=== PATIENT | male | born 1955 | race African-American/Black ===

== ENCOUNTER 2017-02-04 14:24 | Inpatient (IN) | payer OTHER ==
[~2017-02-04] VITALS: Ht 188 cm; Wt 99.9 kg
[2017-02-04] VITALS (8 sets, daily range): BP systolic 116–147; BP diastolic 54–74; PULSE 76–88; RESP 13–20; O2SAT 100
[2017-02-04 15:37] LABS: BASOPHILS % (AUTO) 0 % (0-3); EOSINOPHILS % (AUTO) 2 % (0-5); MONOCYTES % (AUTO) 5 % (4-12); Mean Corpuscular Hemoglobin 18.8 pg (27.0-35.0); Mean Corpuscular Volume 64 fL (81-100); NEUTROPHILS % (AUTO) 61 % (40-74); Platelet Count 221 bil/L (150-400)
[2017-02-04 15:49] LABS: TROPONIN T < 0.010 ug/L (0.0-0.011)
[2017-02-04 15:57] LABS: Magnesium 2.1 mg/dL (1.6-2.6)
--- NOTE | 2017-02-04 16:42 | DRSVH ---
PROCEDURE: X-RAY CHEST ONE VIEW, PORTABLE ([id number]) INDICATIONS: ELEVATED HEART RATE TECHNIQUE: One view of the chest was acquired. COMPARISON: None. FINDINGS: Surgical changes and devices: None. Lungs and pleura: No pleural effusions or pneumothorax. Lungs are clear. Mediastinum: Mediastinal contours appear normal. Heart size is normal. Bones and chest wall: No suspicious bony lesions. Overlying soft tissues appear unremarkable. IMPRESSION: No acute pulmonary process. Dictated by: Meaghan Jones M.D. on 02/04/2017 at 16:40 Approved by: Meaghan Jones M.D. on 02/04/2017 at 16:40
--- NOTE | 2017-02-04 17:07 | ED.REPORT ---
HPI-General Illness Date of Service Feb 04, 2017 ED Provider: Mirza Blue MD 61 y/o male with a hx of asthma and hypothyroid presents to the ED complaining of worsening weakness, onset 4 weeks ago. Associated sx include lightheadedness , myalgia and fatigue. He denies melena, hematochezia and hematemesis.The pt has significantly low hemoglobin. He denies a hx of liver and kidney problems. Nursing Notes Stated Complaint: HEART ISSUES/ANIEMA/SENT BY [facility] Chief Complaint: General Complaint Nursing Notes Reviewed: Yes Allergies: Coded Allergies: No Known Allergies (Unverified , 02/04/17) General Time Seen by MD: 17:06 Chief Complaint Weakness Hx Obtained From: Patient Arrived By: Walk-in Sudden in Onset?: No Onset Occurred: More than a week ago... (4 weeks) Symptom Duration: Since onset Severity: Current: No pain currently Severity: Maximum: No pain Recent Healthcare: Recent doctor visit Similar Sx Previous: No Past Medical History Past Medical History BPH Reports: Asthma Reports: Thyroid disease Past Surgical History Hernia repair Family History Reports: Cancer (mother) Smoking History Unknown if Ever Smoker Social History Alcohol Use: Denies alcohol use Other Social History: Good social support, Ambulatory Status Independent Review of Systems Full Review of Systems Constitutional: Reports: Fatigue, Weakness - generalized GI: Denies: Hematemesis, Hematochezia, Melena Complete sys rev & neg: except as marked. Physical Exam Vital Signs Vital Signs Date Time Temp Pulse Resp B/P Pulse Ox O2 Delivery O2 Flow Rate FiO2 02/04/17 18:06 88 15 128/57 100 Room Air 02/04/17 16:26 36.9 83 13 122/56 100 Room Air 02/04/17 14:35 36.6 76 16 147/64 100 Room Air Initial VS: Reviewed Head / Eyes: Atraumatic, Normocephalic Neck: Supple, Non-tender, Full range of motion Abdomen / GI: Soft, Non-tender, No guarding, No rebound Extremities: Vascular intact, Neuro intact, No swelling, No tenderness Skin: Warm, Dry, No cyanosis Neurologic: Alert, Oriented, Nonfocal General/Constitutional: Awake, Alert, Cooperative Distress / Hydration: Positive: Distress moderate Respiratory / Chest: Atraumatic, Breath sounds NL, Breath sounds = bilat, No respiratory distress, No rales, No rhonchi, No wheezing Cardiovascular: Heart rate NL, Regular rhythm, Heart sounds NL, No gallop, No murmurs, No rubs Rectum / Perineum: Atraumatic, No gross blood Guaiac negative Interpretation & Diagnostics Lab Results Interpretation Result Diagram: 02/04/17 1500 02/04/17 1500 Test 02/04/17 14:16 02/04/17 15:00 Hold Urine Received (Received) White Blood Count 4.2th/mm3 (3.8-10.1) Red Blood Count 3.45mil/mm3 (4.40-5.80) Hemoglobin 6.5g/dL (13.8-17.2) Hematocrit 22.3% (41.0-50.0) Mean Corpuscular Volume 64fL (81-100) Mean Corpuscular Hemoglobin 18.8pg (27.0-35.0) Mean Corpuscular Hemoglobin Concent 29.1% (32.0-37.0) Red Cell Distribution Width 17.5% (12.3-15.4) Platelet Count 221bil/L (150-400) Neutrophils (%) (Auto) 61% (40-74) Lymphocytes (%) (Auto) 32% (14-46) Monocytes (%) (Auto) 5% (4-12) Eosinophils (%) (Auto) 2% (0-5) Basophils (%) (Auto) 0% (0-3) Sodium Level 138mEq/L (134-144) Potassium Level 4.1mEq/L (3.5-5.2) Chloride Level 104mEq/L (97-108) Carbon Dioxide Level 19mmol/L (18-29) Blood Urea Nitrogen 16mg/dL (8-27) Creatinine 1.14mg/dL (0.76-1.27) Estimat Glomerular Filtration Rate 69mL/min (>59) Glucose Level 116mg/dL (60-99) Calcium Level 9.0mg/dL (8.5-10.1) Magnesium Level 2.1mg/dL (1.6-2.6) Total Bilirubin 0.5mg/dL (0.0-1.2) Aspartate Amino Transf (AST/SGOT) 18U/L (0-50) Alanine Aminotransferase (ALT/SGPT) 23U/L (0-44) Alkaline Phosphatase 54U/L (25-160) Troponin T < 0.010ug/L (0.0-0.011) Total Protein 7.0g/dL (6.4-8.4) Albumin 4.0g/dL (3.4-5.0) ECG Interpretation ECG Interpretation: Normal sinus rhythm. Rate 77. Time: 14:54 Interpreted by: ED physician X-Ray Chest Interpretation Chest Xray Interpretation: IMPRESSION: No acute pulmonary process. Dictated by: Meaghan Jones M.D. on 02/04/2017 at 16:40 Approved by: Meaghan Jones M.D. on 02/04/2017 at 16:40 View: Portable, 1 view Interpretation / Wet Read by: Interpret - Radiologist Re-Eval/Medical Decision Med Decision/Clinical Course 61-year-old male history of asthma, BPH presenting with weakness, muscle cramps, lightheadedness and dizziness for several weeks. His hemoglobin is 6.5. He has no history of GI bleed. He has no history of anemia in the past. He reports his mother had cancer but he is not sure what type. His guaiac is negative. Patient will be admitted for blood transfusion and symptomatically anemia workup. Time of Eval: 17:18 Re-Evaluation/Progress Note: Rechecked pt. Discussed lab results, imaging results, diagnosis and plan to admit. Pt understands and agrees with the plan for admission. All questions addressed. Consultation : Referral / Consult Name: Zach Frost MD Consulted With: Hospitalist Call Returned at: 18:03 Chair Upholsterer: Will see patient, Agrees with eval, Agrees with plan, Accepts admit Counseled Regarding: Diagnosis, Lab results, Need for admission Discharge & Departure Primary Impression: Symptomatic anemia Disposition: ADMITTED TO HOSPITAL Discharge Condition All VS Reviewed: Yes [facility] Scribe Attestation Portions of this note were transcribed by Waldemar Harry. I, , personally performed the history, physical exam and medical decision- making;I reviewed and confirmed the accuracy of the information in the transcribed note. Signed by Vera Fernandez. 02/04/17 18:08 copies to: [facility] Mirza Blue MD Feb 04, 2017 17:07 Waldemar Harry Feb 04, 2017 17:14
[2017-02-04] MEDS ORDERED: Ondansetron 2 mg/mL 2 mL Inj IVPUSH PRN ×2 (18:05→19:55)
[2017-02-04] MEDS ORDERED: Alum-Mag Hydrox-Simeth 30 mL Suspension PO PRN ×2 (18:05→19:55)
--- NOTE | 2017-02-04 18:40 | NUR ---
Admit to room 246-1 Pt arrived from ER in stretcher. Able to stand and transfer to scale, BR, then to bed. Consent for blood signed. Orientated to room, call light Pt notified himself of admission and location.
[2017-02-04 18:52] LABS: APPEARANCE,URINE CLEAR (CLEAR,HAZY); COLOR,URINE YELLOW (YELLOW); OCCULT BLOOD,URINE NEGATIVE (NEGATIVE); UROBILINOGEN,URINE NORMAL (NORMAL)
[2017-02-04] MEDS ORDERED: 0.9% Sodium Chloride 100 ML ONE ×2 (19:10)
[2017-02-04] MEDS ORDERED: Polyethylene Glycol (PEG) 17 Gm Powder PO PRN (19:55)
[2017-02-04 21:04] LABS: D-Dimer < 0.50 mg/L FEU (<0.50); INR 1.05 ratio
--- NOTE | 2017-02-04 21:05 | PCM.HPMED ---
Subjective Date of Service Feb 04, 2017 Primary Provider: Admitting Physician: Zach Frost MD [facility] Attending Physician: Zach Frost MD Admit Status: From the Emergency Department Chief Complaint: Fatigue History of Present Illness: Patient is a 61-year-old male with past medical history remarkable for asthma, benign prostatic hypertrophy, hypothyroidism and external hemorrhoidectomy in 2005 who presents with 4 weeks of worsening fatigue. The patient states that prior to 4 weeks ago he could have walked an unlimited distance without being tired and states that he currently would struggle to walk 100 m without being short of breath or fatigued. The patient denies any orthopnea or leg swelling. The patient denies any chest pain, melena, hematochezia, nausea or abdominal pain. The patient does have a history of external hemorrhoids treated with a hemorrhoidectomy in 2005 and states that the last colonoscopy he had was at approximately that time. The patient states that if he remembers correctly there were no irregularities on the last colonoscopy performed at [facility] by who has since retired. The patient denies any unusual bruising or bleeding, and states that his abdomen is approximately normal size. This case was discussed with the on-call drawing kiln supervisor Dr. Salgado who will see the patient in the a.m. Review of Systems: A comprehensive review of systems was completed and all are negative except for what is detailed in the history of present illness. Allergies Coded Allergies: No Known Allergies (Unverified , 02/04/17) Home Medications Asthma inhaler Levothyroxine Tamsulosin Multivitamins PMH Hypothyroidism Benign prostatic hypertrophy Asthma History of external Hemorrhoids Surgical History Hemorrhoidectomy 2006 Left inguinal hernia repair Last colonoscopy reportedly in 2005 Family History Mother of an cancer of unknown etiology at 62 years old Father lived to be 90s 4 brothers with heart conditions namely atrial fibrillation all in their 60s One brother with cardiomegaly in his 60s One sister of an accidental gunshot wound One sister had multiple comorbidities including asthma, diabetes in her 50s Social History Occupation: past Hx Alcohol Use: No Hx Substance Use: No Hx Tobacco Use: No Smoking Status: Never Smoker Living Arrangement: with Family Exam Vital Signs Vital Sign - Last Date Time Temp Pulse Resp B/P Pulse Ox O2 Delivery O2 Flow Rate FiO2 02/04/17 20:22 36.9 76 18 128/74 02/04/17 18:40 100 Room Air Exam General: Adult male appearing younger than stated age in no acute distress, well -developed, well-nourished, appropriately interactive and cooperative Eyes: Pupils equal round reactive to light, extraocular motion intact, anicteric sclera, noninjected conjunctiva HENT: Normocephalic atraumatic, oropharynx clear moist mucous membranes without central cyanosis Neck: Supple with full range of motion. Trachea midline with no JVD Cardiovascular: Regular rate and rhythm without murmurs rubs or gallops noted Pulmonary: Clear to auscultation bilaterally without wheezing rales or rhonchi Normal respiratory effort with no use of accessory muscles. GI: Bowel tones present. Soft, nontender, nondistended. No hepatosplenomegaly noted Extremities: No clubbing cyanosis or edema noted Skin: Warm and dry, no rash, ulcers Neurological: Alert, oriented, no focal neurologic deficits noted Psychiatric: Normal mood and affect. Lab and Diagnostics Result Diagram: 02/04/17 1500 02/04/17 1500 X-Rays, CTs and MRIs X-RAY CHEST ONE VIEW, PORTABLE ([id number]) IMPRESSION: No acute pulmonary process. Dictated by: Meaghan Jones M.D. on 02/04/2017 at 16:40 Approved by: Meaghan Jones M.D. on 02/04/2017 at 16:40 Assessment & Plan Patient is a 61-year-old male with past medical history remarkable for asthma, benign prostatic hypertrophy, hypothyroidism and external hemorrhoidectomy in 2005 who presents with 4 weeks of worsening fatigue. # Acute microcytic anemia - Patient describes an insidious onset of 4 weeks of increasing fatigue and denies symptoms of melena, hematochezia or any episodes of hematemesis and is without abdominal pain or fullness - Hemoglobin of 6.5 at admission with MCV of 64 making iron deficiency likely cause - Coagulation studies show a normal INR with normal fibrinogen and normal d- dimer, haptoglobin is pending for possible insidious hemolysis however this seems unlikely - Patient crossed matched and transfused 2 units of blood - Patient's last reported colonoscopy was in 2005, the patient does have a history of external hemorrhoids - Iron panel shows low iron, low percent saturation and low ferritin making a diagnosis of iron deficiency - Given iron deficiency, most most likely cause is chronic blood loss from GI tract - GI consulted and will see patient in the a.m. - Transfusion of 2 units elevated hemoglobin to 7.7 - IV iron replacement to be initiated in the a.m. - Continue to monitor for acute blood loss anemia - CT scan abdomen and pelvis with contrast to look for source of bleeding # Chronic benign prostatic hypertrophy - Holding outpatient tamsulosin at this time given low normal blood pressure with possible continual blood loss - Day Team may restart patient's home dose of tamsulosin 0.4 mg # Chronic Hypothyroidism - TSH ordered and pending - Patient reportedly takes levothyroxine 0.1 mg every morning - Continue levothyroxine # Chronic asthma - Patient does not appear to be having any allergy symptoms - Patient's home allergy medication includes mometasone fumarate this may be restarted by the day team DVT prophylaxis: Contraindicated at this time GI prophylaxis: Pantoprazole 40 mg twice a day CODE STATUS full Patient is admitted to inpatient status giving presenting symptoms, likely diagnosis, possible complications, and required treatments expected length of stay is greater than tube midnights. Pain Evaluation: Adequate Pain Control GI Prophylaxis: Proton Pump Inhibitor VTE Prophylaxis Indicated: Contraindicated VTE Prophylaxis: SCDs VTE Mechanical Devices: Intermittant Pneumatic CD Resuscitation Status: CPR: Attempt Resuscitation Attending Statement The patient was seen and examined together with Dr. Mosquera on 02/04 and I agree with the history, exam and plan as outlined in the note above. Kadeem Herron DO Feb 04, 2017 21:05 Cameron Yu MD Feb 05, 2017 05:51
[2017-02-04 21:15] LABS: Unsaturated Iron Binding 308.7 ug/dL
[2017-02-04] MEDS ORDERED: FLUT16SP NS (21:38)
[2017-02-04] MEDS ORDERED: GABA-502 PO (21:39)
[2017-02-04] MEDS ORDERED: LEVO100T97 PO (21:39)
[2017-02-04] MEDS ORDERED: TAMS0.4C98 PO (21:40)
[2017-02-04] MEDS ORDERED: CETI-343 PO (21:47)
[2017-02-04] MEDS: Pantoprazole 40 mg ER24 Tablet PO SCH (21:50)
[2017-02-05] VITALS (10 sets, daily range): BP systolic 94–121; BP diastolic 58–76; PULSE 68–95; RESP 16–18; O2SAT 98–100
--- NOTE | 2017-02-05 03:17 | NUR ---
BLOOD Pt received 2 units of PRBCs. VSS before and during administration of blood. BP after 2 units initially was 94/58, recheck 30 minutes later BP up to 117/68, comparable to initial BP. Pt denied any s/sx from blood administration--tolerated well. Continuing care.
[2017-02-05] MEDS ORDERED: 0.9% Sodium Chloride 100 ML ONE (06:13)
[2017-02-05] MEDS: Pantoprazole 40 mg ER24 Tablet PO SCH ×2 (06:26→16:08)
[2017-02-05 06:53] LABS: BASOPHILS % (AUTO) 0.3 % (0-3); EOSINOPHILS % (AUTO) 1.5 % (0-5); Mean Corpuscular Hemoglobin 20.2 pg (27.0-35.0); Mean Corpuscular Volume 68.2 fL (81-100); NEUTROPHILS % (AUTO) 56.7 % (40-74); Platelet Count 231 bil/L (150-400)
[2017-02-05] MEDS ORDERED: Ferric Sod Gluc Complex Inj 125 MG in 0.9% Sodium Chloride 100 ML IV ONE (07:00)
[2017-02-05 08:10] LABS: Vitamin B12 >1999 pg/mL (211-946)
--- NOTE | 2017-02-05 09:34 | CONS ---
[address] [address] CONSULTATION REPORT PATIENT: CURT ZAVALA : 1955 MR#: [id number] ADMIT: 02/04/2017 JOB ID: [id number] DATE OF SERVICE: 02/05/2017 It was a pleasure seeing the patient at [facility] GI service for anemia. HISTORY OF PRESENT ILLNESS: This is a 61-year-old gentleman with history of asthma and hypothyroidism who came to the emergency department with a 4-6 weeks history of progressive weakness. In the past few days, he started getting some lightheadedness as well as some shortness of breath. With minimal exertion he was getting these symptoms. He was barely able to walk 100 yards. In the past his exercise tolerance was a lot better. 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 So because of his significant fatigue, shortness of breath, weakness which has gotten worse in the past five days or so. Came to the emergency department. In the emergency department he was noted to be anemic. His stools are brown. His guaiac was negative. He denied any fever, chills, headaches, blurry vision, chest pain, shortness of breath, abdominal pain. He only gets short of breath with activity. Denies skin rash, joint pain. No blood in the stools or black stools, change in bowel patterns, constipation, diarrhea, weight loss. His last colonoscopy was done more than [address] Hooks at [facility]. Overnight he did well. He was given blood. PAST MEDICAL HISTORY: Hypothyroidism, benign prostate hypertrophy, asthma, and history of external hemorrhoids. PAST SURGICAL HISTORY: Hemorrhoidectomy, left inguinal hernia repair, colonoscopy last one in 2005. FAMILY HISTORY: No colon cancer documented. SOCIAL HISTORY: Denies use of tobacco, alcohol, or drugs. MEDICATIONS: Here include levothyroxine, pantoprazole, MiraLAX, Senokot, Zofran, and Maalox. PHYSICAL EXAMINATION: Patient is alert, oriented, comfortable. Temp 36.4, pulse 85, respirations 16, blood pressure 104/62. Head and neck: No icterus. No lymphadenopathy. Lungs clear. Cardiovascular regular rate and rhythm. Normal S1, S2. Abdomen is soft, nontender, nondistended with normoactive bowel sounds. Extremities: No pitting edema at the ankles. Skin shows no clear jaundice, but difficult to tell because of his hyperpigmentation. Radial pulses bilateral strong and intact. LABORATORY STUDIES: Hemoglobin was 6.5, when he came in. After the unit of blood. Hemoglobin 7.7, repeat is 7.5. Platelets 231,000. INR was normal at 1.05. Chemistry: BUN 16, creatinine 1.14. LFTs are normal. B12 is high and folate level is normal. There is evidence of iron deficiency with percent saturation of 5, iron of 15, and ferritin of 5. IMAGING: A chest x-ray reveals no acute pulmonary process. KUB is pending. IMPRESSION: This is a gentleman with progressive weakness and significant anemia of 6.5, he received blood. He is feeling better. His dizziness and lightheadedness is better, and he feels stronger. No history of nonsteroidal antiinflammatory drug use or aspirin use. No blood in the stools or black stools. Guaiac negative stools. He denies any hematuria or any kind of bleeding issues or bleeding problems. No coughing up blood either. Statistically speaking, gastrointestinal blood loss is the most common. With intermittent gastrointestinal bleeding, black stools, can be false negative. There is still guaiac in the stools. I have asked the patient to be on clears starting at lunch and will proceed with esophagogastroduodenoscopy and colonoscopy at the same time tomorrow morning. ROBERTO
--- NOTE | 2017-02-05 11:07 | DRSVH ---
PROCEDURE: X-RAY KUB ([id number]) INDICATIONS: unexplained anemia TECHNIQUE: One view of the abdomen acquired. COMPARISON: None. FINDINGS: Surgical changes and devices: None. Bowel: Bowel gas pattern is normal. Soft tissues: No suspicious abdominal calcifications. Visualized solid organ contours appear normal in size. Bones: No suspicious bony lesions. IMPRESSION: Normal bowel gas pattern. No source for anemia identified radiographically. Dictated by: Joaquin James [facility] Interpreted: Keyshawn Rodriguez MD on 02/05/2017 at 9:05 Approved by: Keyshawn Rodriguez M.D. on 02/05/2017 at 11:04
--- NOTE | 2017-02-05 13:28 | DRSVH ---
PROCEDURE: CT CHEST, ABDOMEN AND PELVIS [facility] CONTRAST ([id number]) INDICATIONS: gi bleed TECHNIQUE: After the administration of oral and intravenous contrast, 5 mm thick sections acquired from the lung apices to the symphysis. 5 mm coronal and sagittal reformats were performed, with additional 7 mm c oronal MIP reformats through the lungs. For radiation dose reduction, the following was used: autom ated exposure control, adjustment of mA and/or kV according to patient size. COMPARISON: None. FINDINGS: Image quality: Excellent. CHEST: Lungs and pleura: No acute airspace opacities. No pleural effusions or pneumothorax. Central and p eripheral airways appear patent and normal in caliber. Mediastinum: Heart size is normal. No pericardial effusion. No mediastinal or hilar adenopathy by size criteria. Thoracic aorta and central pulmonary arteries are normal in size. Esophagus is milana l in caliber. No hiatal hernia. Chest wall: No axillary or supraclavicular adenopathy by size criteria. Thyroid gland is unremarkab le. ABDOMEN: Solid organs: Liver and spleen are normal in size and enhancement. Gallbladder is unremarkable. Bi liary system is non dilated. Pancreas enhances normally. No adrenal nodules. Kidneys demonstrate n ormal size and enhancement, without hydronephrosis. Right renal cyst is noted. Peritoneum and bowel: Bowel loops demonstrate normal wall thickness and caliber. No free fluid or a ir. Minimal scattered diverticula are present without inflammatory change. Moderate stool is present predominantly within the right colon. Nodes and vessels: No retroperitoneal or mesenteric adenopathy by size criteria. Aorta and inferior vena cava are normal in size. Miscellaneous: Fat containing ventral hernia is present. PELVIS: Genitourinary: Bladder wall thickness is normal. The prostate gland is enlarged. Miscellaneous: No inguinal hernias or adenopathy. Bones: No suspicious bony lesions. No vertebral body compression fractures. IMPRESSION: 1. No visualized cause of GI bleed. 2. Minimal scattered diverticula without inflammatory change. Dictated by: Meaghan Jones M.D. on 02/05/2017 at 11:35 Approved by: Meaghan Jones M.D. on 02/05/2017 at 13:26
--- NOTE | 2017-02-05 14:05 | NUR ---
Social Work- Screening Data: EMR reviewed. Pt is a 61 year old male admitted 02/04/17 for anemia per H&P. Pt's insurance is [employer] and PCP is [facility]. Pt's NOK is Tiarra Alejo, , . Per chart review, pt resides at home independently. Pt has been able to ambulate long distances independently prior to admission but pt notes a decrease in distance lately. GI has been consulted, pt to receive EGD and colonoscopy tomorrow. Of note: it is likely pt receives his medications through [facility] and protocol to obtain his medications, including 24 hour notice to obtain medications is required. Pt is likely to discharge home no needs when medically stable. SW will continue to follow. Assessment: Pt who is independent at baseline. Plan: GI has been consulted, pt to receive EGD and colonoscopy tomorrow. Of note: it is likely pt receives his medications through [facility] and protocol to obtain his medications, including 24 hour notice to obtain medications is required. Pt is likely to discharge home no needs when medically stable. SW will continue to follow. Katina Kirby MSW
[2017-02-05] MEDS ORDERED: PEG/Electrolytes 4,000 mL Solution PO ONE ×2 (14:10→16:00)
--- NOTE | 2017-02-05 14:13 | PCM.PNMED ---
Subjective Date of Service Feb 05, 2017 Subjective No significant symptoms of anemia. Hemoglobin responded only by 1 g after transfusion of PRBCs. CT abdomen chest pelvis unrevealing of etiology of anemia. Going for endoscopy and colonoscopy tomorrow Exam Vital Signs Vital Sign - Last Date Time Temp Pulse Resp B/P Pulse Ox O2 Delivery O2 Flow Rate FiO2 02/05/17 12:30 36.9 68 16 105/67 99 Room Air Intake and Output 02/04/17 02/04/17 02/05/17 Cumulative From/Thru 15:00 23:00 07:00 02/04/17 14:35 - 02/05/17 05:45 Intake Total 400 ml 809 ml 1209 ml Output Total 275 ml 275 ml Balance 400 ml 534 ml 934 ml Intake Oral 480 ml 480 ml IV Total 100 ml 29 ml 129 ml Packed Cells 300 ml 300 ml 600 ml Output Urine Total 275 ml 275 ml # Voids 1 1 Exam General: Adult male appearing younger than stated age in no acute distress, well -developed, well-nourished, appropriately interactive and cooperative Eyes: Pupils equal round reactive to light, extraocular motion intact, anicteric sclera, noninjected conjunctiva HENT: Normocephalic atraumatic, oropharynx clear moist mucous membranes without central cyanosis Neck: Supple with full range of motion. Trachea midline with no JVD Cardiovascular: Regular rate and rhythm without murmurs rubs or gallops noted Pulmonary: Clear to auscultation bilaterally without wheezing rales or rhonchi Normal respiratory effort with no use of accessory muscles. GI: Bowel tones present. Soft, nontender, nondistended. No hepatosplenomegaly noted Extremities: No clubbing cyanosis or edema noted Skin: Warm and dry, no rash, ulcers Neurological: Alert, oriented, no focal neurologic deficits noted Psychiatric: Normal mood and affect. IVs and Medications Medications Reviewed: Medications were reviewed in detail Lab and Diagnostics Result Diagram: 02/05/17 0649 02/05/17 0830 X-Rays, CTs and MRIs X-RAY CHEST ONE VIEW, PORTABLE ([id number]) IMPRESSION: No acute pulmonary process. Dictated by: Meaghan Jones M.D. on 02/04/2017 at 16:40 Approved by: Meaghan Jones M.D. on 02/04/2017 at 16:40 PROCEDURE: CT CHEST, ABDOMEN AND PELVIS WT CONTRAST ([id number]) INDICATIONS: gi bleed IMPRESSION: 1. No visualized cause of GI bleed. 2. Minimal scattered diverticula without inflammatory change. Dictated by: Meaghan Jones M.D. on 02/05/2017 at 11:35 Assessment & Plan Patient is a 61-year-old male with past medical history remarkable for asthma, benign prostatic hypertrophy, hypothyroidism and external hemorrhoidectomy in 2005 who presents with 4 weeks of worsening fatigue. # Acute microcytic anemia - Patient describes an insidious onset of 4 weeks of increasing fatigue and denies symptoms of melena, hematochezia or any episodes of hematemesis and is without abdominal pain or fullness - Hemoglobin of 6.5 at admission with MCV of 64 making iron deficiency likely cause. Transfused 2 PRBCs. Hemoglobin responded only by 1 g. From 6.5 to 7.5. - Coagulation studies show a normal INR with normal fibrinogen and normal d- dimer, haptoglobin is pending for possible insidious hemolysis however this seems unlikely - Patient's last reported colonoscopy was in 2005, the patient does have a history of external hemorrhoids - Iron panel shows low iron, low percent saturation and low ferritin making a diagnosis of iron deficiency - Given iron deficiency, most most likely cause is chronic blood loss from GI tract. GI consulted and planning to do colonoscopy and endoscopy tomorrow - IV iron given - Continue to monitor for acute blood loss anemia - CT scan chest, abdomen and pelvis with contrast unrevealing # Chronic benign prostatic hypertrophy - Resume home dose of tamsulosin 0.4 mg # Chronic Hypothyroidism - TSH slightly elevated. Free T4 requested - Patient reportedly takes levothyroxine 0.1 mg every morning - Continue levothyroxine # Chronic asthma - Patient does not appear to be having any allergy symptoms - Patient's home allergy medication includes mometasone fumarate this may be restarted by the day team DVT prophylaxis: Contraindicated at this time GI prophylaxis: Pantoprazole 40 mg twice a day CODE STATUS full Patient is admitted to inpatient status giving presenting symptoms, likely diagnosis, possible complications, and required treatments expected length of stay is greater than tube midnights. Disposition: Discharging 1- 2 days pending endoscopy and colonoscopy GI Prophylaxis: Proton Pump Inhibitor VTE Prophylaxis: SCDs VTE Mechanical Devices: Intermittant Pneumatic CD Resuscitation Status: CPR: Attempt Resuscitation Zach Frost MD Feb 05, 2017 14:12
--- NOTE | 2017-02-05 16:37 | NUR ---
Saully Pt. has been started on golytely at about 1430 for a endoscope tomorrow morning. Pt. will be NPO after midnight tonight. Pt. denies N/V/D/C or abdominal pain at this time, no bloody stools noted on this sift. Will continue to monitor.
[2017-02-06] VITALS (11 sets, daily range): BP systolic 98–119; BP diastolic 61–72; PULSE 66–95; RESP 16–19; O2SAT 90–100
--- NOTE | 2017-02-06 04:00 | NUR ---
NPO Pt. instructed to be NPO after midnight for EGD and colonoscopy in 02/06 with pt. acknowledged, no discomfort voiced this shift, no any kind of bleeding reported/noted at this time, VSS, afebrile, uses call light appropriately, hourly checks and will continue to monitor.
[2017-02-06] MEDS: Pantoprazole 40 mg ER24 Tablet PO SCH ×2 (08:08→15:38)
[2017-02-06 09:28] LABS: BASOPHILS % (AUTO) 0.3 % (0-3); EOSINOPHILS % (AUTO) 1.7 % (0-5); MONOCYTES % (AUTO) 8.5 % (4-12); Mean Corpuscular Hemoglobin 20.4 pg (27.0-35.0); NEUTROPHILS % (AUTO) 66.1 % (40-74); Platelet Count 268 bil/L (150-400)
[2017-02-06 09:45] LABS: Magnesium 2.2 mg/dL (1.6-2.6)
[2017-02-06 10:02] LABS: ERYTHROCYTE SEDIMENTATION RATE 11 mm/hr (0-30)
--- NOTE | 2017-02-06 11:28 | NUR ---
Spoke with Simi at OR patient access in [place] and patient is non service connected and holds no other insurance. Patient is seen at [facility] in [facility] with Dr.Maryann Ly Updated GUIDE ESCORT
[2017-02-06] MEDS ORDERED: 0.9% Sodium Chloride 1,000 ML IV PRN (12:18)
[2017-02-06] MEDS ORDERED: Sodium Chloride LOK Flush 10 mL Syringe IV PRN (12:20)
[2017-02-06] MEDS ORDERED: fentaNYL-PF 50 mCg/mL 2 mL Inj IVPUSH PRN (12:20)
--- NOTE | 2017-02-06 13:32 | PCM.ENDEGD ---
EGD Date of Service: Feb 06, 2017 Physician Luisito Salgado MD Pre Procedure Diagnosis: Anemia Post Procedure Dx & Findings: Inflammatory gastric polyp and small yellowish duodenal nodule Procedure Esophagogastroduodenoscopy PROCEDURE IN DETAIL: After proper sedation, Olympus video endoscope was inserted into patient's mouth and esophagus was successfully intubated. Scope introduced esophagus. Esophagus showed normal shiny whitish mucosa consistent with squamous cell component. Z line was intact at 45 cm from the incisors. Scope further advanced to the stomach. Stomach showed normal shiny mucosa with normal appearing rugae folds without any ulcer mass erosion. However there were 2 what appears to be an inflammatory polyp. First one was about 1.5 cm. The second one was about 2 cm. These were both biopsied. Cardia fundus body antrum pylorus were all visualized. Retroflexion was done. Stomach was easily inflated and deflatable using air. Scope further advanced to the distal duodenum. Duodenum revealed normal villous structures with normal appearing folds without any mass ulcer erosion. Random biopsies of duodenum was obtained 5. There was a 1 mm yellowish nodule which was biopsied. Impression No source of anemia Inflammatory polyps Yellowish nodule in the duodenum Recommendation Await biopsy Presedation Assessment Risks and Benefits Informed consent was obtained from the patient after all risks and benefits including but not limited to drug reaction, infection, pain, bleeding, perforation, as well as alternatives were discussed. Patient monitoring Continuous pulse oximetry, cardiac monitoring, blood pressure monitoring, IV access, and oxygen at 2L per nasal cannula. Periprocedural Fentanyl: Fentanyl 100mcg Incrementally Midazolam: Midazolam 5mg Incrementally Complications There were no periprocedural complications identified. Post Procedure Plan Post Procedure Recommendations 1. Restrict activities today. 2. Resume normal activities in the morning. 3. Resume medications. 4. GERD behavioral modification: - Avoid fatty, acidic, spicy, large meals - Do not lie down after meals - Do not eat or drink anything for at least 2 1/2 hours before going to bed at night - Discontinue tobacco and alcohol - Decrease or avoid caffeine - Avoid chocolate and mints - Decrease weight - Avoid aspirin and non steroidal anti-inflammatory agents (NSAID) such as Aleve, Advil, Mobic, Naproxen, Ibuprofen, etc 5. Add proton pump inhibitor. Take 30 minutes before 1st meal of the day. 6. Patient informed of normal post procedure side effects as bloating, drowsiness, blood streaking in the stool 7. If gastric biopsy reveal H.pylori, continue with appropriate treatment 8. If small bowel biopsy reveals celiac, continue with appropriate treatment 9. Please don't hesitate to call me with any questions Luisito Salgado MD Feb 06, 2017 13:32
--- NOTE | 2017-02-06 13:34 | PCM.ENDCOL ---
Colonoscopy Date of Service: Feb 06, 2017 Physician Luisito Salgado MD Pre Procedure Diagnosis: Anemia Post Procedure Dx & Findings: Poor prep normal TI Procedure Colonoscopy PROCEDURE IN DETAIL: Prep poor Withdrawal time 12 minutes After unremarkable rectal examination the Olympus video colonoscope was inserted patient's anal canal and was advanced to cecum. Landmarks were identified including the ileocecal valve and appendiceal orifice. Scope further advanced to the terminal ileum. Evidence about 10 cm. Visualized terminal ileum showed normal villous structures without any ulcer mass or erosion. Scope was withdrawn systematically. Visualized colonic mucosa showed healthy shiny mucosa with normal healthy-appearing vasculature. Prep was poor in certain areas. We lost suction several times due to the prep. However did not see anything big such as a cancer. In the rectum retroflexion was done which showed hemorrhoids. Anal canal was inspected carefully on the way out and hemorrhoids noted. Impression Poor prep Normal TI No source of anemia. Hemorrhoids Recommendation Repeat colonoscopy in 2 weeks with 3 days of clears. Follow up in GI clinic. Presedation Assessment Risks and Benefits Informed consent was obtained from the patient after all risks and benefits including but not limited to drug reaction, infection, pain, bleeding, perforation, as well as alternatives were discussed. Patient monitoring Continuous pulse oximetry, cardiac monitoring, blood pressure monitoring, IV access, and oxygen at 2L per nasal cannula. Complications There were no periprocedural complications identified. Post Procedure Plan Post Procedure Recommendations 1. Restrict activities today. 2. Resume normal activities in the morning. 3. Resume medications. 4. Patient informed of normal post procedure side effects as bloating, drowsiness, blood streaking in the stool. 5. average risk CRCS. If colon polyps come back as: -Hyperplastic- can repeat colonoscopy in 10 years -Tubular adenoma- repeat colonoscopy in 5 years -Tubulovillous/villous adenoma- repeat colonoscopy in 3 years -If any dysplasia- return to clinic as soon as possible 6. Please don't hesitate to call me with any questions. Luisito Salgado MD Feb 06, 2017 13:34
--- NOTE | 2017-02-06 13:41 | PCM.DIMED ---
Discharge Instructions Date of Service Feb 06, 2017 Dates of Hospitalization Feb 04, 2017 at 18:17 Discharge Diagnosis Discharge Diagnosis # Acute iron deficiency anemia requiring transfusion of unknown etiology # Chronic benign prostatic hypertrophy # Chronic Hypothyroidism # Chronic asthma Diet Discharge Diet: No restrictions Activity Discharge Activity: Limited until seen by PCP Call your provider Call your provider for: Fever or Chills, Shortness of breath, Bleeding, Chest pain, Vomitting, Excessive diarrhea, Weakness (unilateral) Patient Instructions Patient Instructions You were hospitalized to due to severe iron deficiency anemia requiring transfusion. Transfused 2 units of blood. IV iron given. CT abdomen chest and pelvis did not show any source of anemia. Endoscopy and colonoscopy did not show any source of bleeding. Colonoscopy was suboptimal due to poor preparation. Please follow-up with in 3 weeks for repeat colonoscopy with better preparation. [facility] Follow-up with PCP in: 1 week Provider: Luisito Salgado MD Follow-up in: 3 weeks Zach Frost MD Feb 06, 2017 13:41
[2017-02-06] MEDS ORDERED: FERR-83 PO (13:42)
--- NOTE | 2017-02-06 13:48 | PCM.DC.MED ---
Discharge Summary Date of Service Feb 06, 2017 Dates of Hospitalization Date of Hospital Admission Feb 04, 2017 at 18:17 Date of Discharge: Feb 06, 2017 Providers: Admitting Physician: Zach Frost MD [facility]: Zach Frost MD Diagnosis at Time of Discharge Diagnosis at Time of Discharge # Acute iron deficiency anemia requiring transfusion of unknown etiology # Chronic benign prostatic hypertrophy # Chronic Hypothyroidism # Chronic asthma Consultations GI Dr Salgado Procedures XRay, CTs & MRIs X-RAY CHEST ONE VIEW, PORTABLE ([id number]) IMPRESSION: No acute pulmonary process. Dictated by: Meaghan Jones M.D. on 02/04/2017 at 16:40 Approved by: Meaghan Jones M.D. on 02/04/2017 at 16:40 PROCEDURE: CT CHEST, ABDOMEN AND PELVIS WTIH CONTRAST ([id number]) INDICATIONS: gi bleed IMPRESSION: 1. No visualized cause of GI bleed. 2. Minimal scattered diverticula without inflammatory change. Dictated by: Meaghan Jones M.D. on 02/05/2017 at 11:35 Invasive Procedures Colonoscopy PROCEDURE IN DETAIL: Prep poor Withdrawal time 12 minutes After unremarkable rectal examination the Olympus video colonoscope was inserted patient's anal canal and was advanced to cecum. Landmarks were identified including the ileocecal valve and appendiceal orifice. Scope further advanced to the terminal ileum. Evidence about 10 cm. Visualized terminal ileum showed normal villous structures without any ulcer mass or erosion. Scope was withdrawn systematically. Visualized colonic mucosa showed healthy shiny mucosa with normal healthy-appearing vasculature. Prep was poor in certain areas. We lost suction several times due to the prep. However did not see anything big such as a cancer. In the rectum retroflexion was done which showed hemorrhoids. Anal canal was inspected carefully on the way out and hemorrhoids noted. Impression Poor prep Normal TI No source of anemia. Hemorrhoids Recommendation Repeat colonoscopy in 2 weeks with 3 days of clears. Follow up in GI clinic. Esophagogastroduodenoscopy PROCEDURE IN DETAIL: After proper sedation, Olympus video endoscope was inserted into patient's mouth and esophagus was successfully intubated. Scope introduced esophagus. Esophagus showed normal shiny whitish mucosa consistent with squamous cell component. Z line was intact at 45 cm from the incisors. Scope further advanced to the stomach. Stomach showed normal shiny mucosa with normal appearing rugae folds without any ulcer mass erosion. However there were 2 what appears to be an inflammatory polyp. First one was about 1.5 cm. The second one was about 2 cm. These were both biopsied. Cardia fundus body antrum pylorus were all visualized. Retroflexion was done. Stomach was easily inflated and deflatable using air. Scope further advanced to the distal duodenum. Duodenum revealed normal villous structures with normal appearing folds without any mass ulcer erosion. Random biopsies of duodenum was obtained 5. There was a 1 mm yellowish nodule which was biopsied. Impression No source of anemia Inflammatory polyps Yellowish nodule in the duodenum Recommendation Await biopsy Brief History per HPI Patient is a 61-year-old male with past medical history remarkable for asthma, benign prostatic hypertrophy, hypothyroidism and external hemorrhoidectomy in 2005 who presents with 4 weeks of worsening fatigue. The patient states that prior to 4 weeks ago he could have walked an unlimited distance without being tired and states that he currently would struggle to walk 100 m without being short of breath or fatigued. The patient denies any orthopnea or leg swelling. The patient denies any chest pain, melena, hematochezia, nausea or abdominal pain. The patient does have a history of external hemorrhoids treated with a hemorrhoidectomy in 2005 and states that the last colonoscopy he had was at approximately that time. The patient states that if he remembers correctly there were no irregularities on the last colonoscopy performed at [facility] by who has since retired. The patient denies any unusual bruising or bleeding, and states that his abdomen is approximately normal size. This case was discussed with the on-call import export clerk Dr. Salgado who will see the patient in the a.m. Hospital Course Patient is a 61-year-old male with past medical history remarkable for asthma, benign prostatic hypertrophy, hypothyroidism and external hemorrhoidectomy in 2005 who presents with 4 weeks of worsening fatigue. # Acute severe iron deficiency anemia requiring transfusion. Unknown etiology - Patient describes an insidious onset of 4 weeks of increasing fatigue and denies symptoms of melena, hematochezia or any episodes of hematemesis and is without abdominal pain or fullness - Hemoglobin of 6.5 at admission with MCV of 64 making iron deficiency likely cause. Transfused 2 PRBCs. Hemoglobin responded to 8.1. - Coagulation studies show a normal INR with normal fibrinogen and normal d- dimer, haptoglobin is pending for possible insidious hemolysis however this seems unlikely - Patient's last reported colonoscopy was in 2005, the patient does have a history of external hemorrhoids - Iron panel shows low iron, low percent saturation and low ferritin making a diagnosis of iron deficiency - Given iron deficiency, most most likely cause is chronic blood loss from GI tract. GI consulted and planning to do colonoscopy and endoscopy tomorrow - IV iron given. Continue by mouth iron -Endoscopy and colonoscopy unrevealing of source of anemia.Colonoscopy was suboptimal due to poor preparation. follow-up with in 3 weeks for repeat colonoscopy with better preparation. - CT scan chest, abdomen and pelvis with contrast unrevealing # Chronic benign prostatic hypertrophy - Resume home dose of tamsulosin 0.4 mg # Chronic Hypothyroidism - TSH slightly elevated. Free T4 0.84. Advised to follow-up thyroid function test and may need to increase Synthroid dose. - Patient reportedly takes levothyroxine 0.1 mg every morning - Continue levothyroxine. # Chronic asthma - Patient does not appear to be having any allergy symptoms Disposition: Discharge home Condition on discharge stable Exam Vital Signs (Last) Date Time Temp Pulse Resp B/P Pulse Ox O2 Delivery O2 Flow Rate FiO2 02/06/17 13:33 75 16 98/61 98 Room Air 02/06/17 11:55 36.5 Exam General: Adult male appearing younger than stated age in no acute distress, well -developed, well-nourished, appropriately interactive and cooperative Eyes: Pupils equal round reactive to light, extraocular motion intact, anicteric sclera, noninjected conjunctiva HENT: Normocephalic atraumatic, oropharynx clear moist mucous membranes without central cyanosis Neck: Supple with full range of motion. Trachea midline with no JVD Cardiovascular: Regular rate and rhythm without murmurs rubs or gallops noted Pulmonary: Clear to auscultation bilaterally without wheezing rales or rhonchi Normal respiratory effort with no use of accessory muscles. GI: Bowel tones present. Soft, nontender, nondistended. No hepatosplenomegaly noted Extremities: No clubbing cyanosis or edema noted Skin: Warm and dry, no rash, ulcers Neurological: Alert, oriented, no focal neurologic deficits noted Psychiatric: Normal mood and affect. Test 02/04/17 14:16 02/04/17 15:00 02/05/17 05:53 02/05/17 06:49 Urine Color Yellow (YELLOW) Urine Appearance Clear (CLEAR,HAZY) Urine pH 5.0 (5.0-8.0) Urine Specific [place] 1.020 (1.003-1.035) Urine Protein Negativemg/dL (NEG,TRACE) Urine Glucose (UA) Negativemg/dL (NEGATIVE) Urine Ketones Negativemg/dL (NEGATIVE) Urine Occult Blood Negative (NEGATIVE) Urine Nitrite Negative (NEGATIVE) Urine Bilirubin Negative (NEGATIVE) Urine Urobilinogen Normalmg/dL (NORMAL) Urine Leukocyte Esterase Negative (NEGATIVE) Urine RBC 0-2/hpf (0-2) Urine WBC 0-5/hpf (0-5) Urine Epithelial Cells Occasional/hpf (NONE-MOD) Urine Crystals None seen (NONE SEEN) Urine Bacteria None/hpf (NONE-FEW) Urine Hyaline Casts None/lpf (NONE) Urine Granular Casts None seen (NONE SEEN) Urine Waxy Casts None seen (NONE SEEN) Urine Red Blood Cell Casts None seen (NONE SEEN) Urine White Blood Cell Casts None seen (NONE SEEN) Urine Mucus None seen (None Seen) Urine Trichomonas None seen (NONE SEEN) Urine Yeast None (NONE SEEN) Urinalysis Comment None Urine Culture Reflexed Not indicated Hold Urine Received (Received) Reticulocyte Count,Calculated 1.8% (0.6-2.6) Haptoglobin 99mg/dL (34-200) Prothrombin Time 11.2sec (8.1-12.5) Prothromb Time International Ratio 1.05ratio Activated Partial Thromboplast Time 25.9sec (22.8-33.0) Fibrinogen 223mg/dL (157-380) D-Dimer < 0.50mg/L FEU (<0.50) Iron Level 15ug/dL (35-150) Total Iron Binding Capacity 324ug/dL (250-450) Percent Iron Saturation 5%sat (15-50) Unsaturated Iron Binding 308.7ug/dL Ferritin 5ng/mL (30-400) Troponin T < 0.010ug/L (0.0-0.011) Vitamin B12 Level >1999pg/mL (211-946) Folate 12.3ng/mL (>3.0) Free Thyroxine 0.84ng/dL (0.82-1.77) Hemoglobin A1c 5.8% (4.8-5.6) Test 02/05/17 08:30 02/06/17 09:08 Lipase 42U/L (13-60) Thyroid Stimulating Hormone (TSH) 4.510uIU/mL (0.450-4.500) White Blood Count 6.0th/mm3 (3.8-10.1) Red Blood Count 3.97mil/mm3 (4.40-5.80) Hemoglobin 8.1g/dL (13.8-17.2) Hematocrit 27.0% (41.0-50.0) Mean Corpuscular Volume 68.0fL (81-100) Mean Corpuscular Hemoglobin 20.4pg (27.0-35.0) Mean Corpuscular Hemoglobin Concent 30.0% (32.0-37.0) Red Cell Distribution Width 19.8% (12.3-15.4) Platelet Count 268bil/L (150-400) Neutrophils (%) (Auto) 66.1% (40-74) Lymphocytes (%) (Auto) 23.2% (14-46) Monocytes (%) (Auto) 8.5% (4-12) Eosinophils (%) (Auto) 1.7% (0-5) Basophils (%) (Auto) 0.3% (0-3) Erythrocyte Sedimentation Rate 11mm/hr (0-30) Sodium Level 140mEq/L (134-144) Potassium Level 4.0mEq/L (3.5-5.2) Chloride Level 105mEq/L (97-108) Carbon Dioxide Level 24mmol/L (18-29) Blood Urea Nitrogen 13mg/dL (8-27) Creatinine 1.15mg/dL (0.76-1.27) Estimat Glomerular Filtration Rate 69mL/min (>59) Glucose Level 98mg/dL (60-99) Calcium Level 8.8mg/dL (8.5-10.1) Magnesium Level 2.2mg/dL (1.6-2.6) Total Bilirubin 0.9mg/dL (0.0-1.2) Aspartate Amino Transf (AST/SGOT) 16U/L (0-50) Alanine Aminotransferase (ALT/SGPT) 19U/L (0-44) Alkaline Phosphatase 55U/L (25-160) Total Protein 6.4g/dL (6.4-8.4) Albumin 3.8g/dL (3.4-5.0) Discharge Medications Discharge Medications Ferrous Sulfate (Ferrous Sulfate) 325 Mg Tablet 325 MG PO DAILY Prescribed by: ZACH FROST MD Fluticasone Propionate (Fluticasone Propionate Nasal) 16 Gm [place].susp 2 SPRAY NS DAILY (Reported) Gabapentin (Gabapentin) 300 Mg Capsule 300 MG PO BID (Reported) Levothyroxine (Synthroid) 100 Mcg Tablet 100 MCG PO DAILY (Reported) Tamsulosin (Flomax) 0.4 Mg Capsule 0.4 MG PO DAILY (Reported) As needed Cetirizine HCl (24Hour Allergy) 10 Mg Tablet 10 MG PO PRN For Congestion ( Reported) Followup Plan Disposition: Home Discharge Diet: No restrictions Discharge Activity: Limited until seen by PCP Patient Instructions You were hospitalized to due to severe iron deficiency anemia requiring transfusion. Transfused 2 units of blood. IV iron given. CT abdomen chest and pelvis did not show any source of anemia. Endoscopy and colonoscopy did not show any source of bleeding. Colonoscopy was suboptimal due to poor preparation. Please follow-up with in 3 weeks for repeat colonoscopy with better preparation. Follow-up Provider: [facility] Follow-up with PCP in: 1 week Provider: Luisito Salgado MD Follow-up in: 3 weeks Time spent 35 minutes copies to: Luisito Salgado MD; [facility] Zach Frost MD Feb 06, 2017 13:48
--- NOTE | 2017-02-06 17:04 | NUR ---
Endo/Discharge Pt. went to endoscopy procedure at ~1200 and left with no c/o pain, SOB, or pain. Pt. had been NPO since midnight. VS stable. Pt. then arrived back to room 246-1 MOC at ~1415 from procedure with no c/o pain, SOB, or pain. VS stable. Pt. states feeling good and feeling hungry. Pt. tolerated clear liquid well per Endo RN report. Pt. was placed on general diet and tolerated will pierre crackers, orange juice, saltine crackers as well. Pt. discharged to home and came to pick him up. Pt. took all his belongings from room 246-1 MOC. Pt. was given educational material on new prescription ferrous sulfate PO and Anemia for which he was admitted for. Pt. did ask a question about the interactions ferrous sulfate has with gabapentin because in the instruction for gabapentin that he was given when it was prescribed to him by his MD it stated "Dont take iron supplements when taking gabapentin". I called down to pharmacist and they confirmed that there is no interaction between the two medications and I went ahead to explain to the Pt. that the pharmacist here at [facility] stated there is no interactions. Pt. stated he understood. IV DC'D x1 intact and asymptomatic. Pt. ambulated out of the hospital with SBA to the exit of the hospital.
--- NOTE | 2017-02-09 14:35 | PATH ---
SURGICAL PATHOLOGY Attending Physician:See Additional MD CASE STATUS: Signed Out PATIENT NAME: CURT ZAVALA PID: [id number] : 1955 DATE COLLECTED:02/06/2017 00:00 SPECIMEN: 1: Duodenum, Biopsy 2: Duodenum, Biopsy 3: Stomach, Polyp, Biopsy CLINICAL HISTORY: 1). DUODENAL BIOPSY 2). YELLOWISH NODULE BIOPSY 3). GASTRIC POLYPS X2, INFLAMMATORY FINAL DIAGNOSIS: 1.DUODENUM, BIOPSY: NORMAL DUODENAL MUCOSA. No significant inflammation identified. Negative for feaures of celiac disease. No evidence of malignancy or dysplasia. 2.YELLOWISH NODULE, DUODENUM, BIOPSY: DILATED LACTEALS. No evidence of malignancy or dysplasia. 3.GASTRIC POLYPS: HYPERPLASTIC POLYP. No evidence of malignancy or dysplasia. Negative for intestinal metaplasia. ICD10 D13.1 GROSS DESCRIPTION: The specimens are received in formalin, labeled with the patient's name and sublabeled as the following: (1) duod; (2) yell nodul; (3) gastric (1) The specimen consists of multiple fragments of valdez-white, glistening, rubbery, semi-translucent tissue (0.6 x 0.4 x 0.1 cm in aggregate). Section code: (1A) tissue. Specimen entirely submitted. (2) The specimen consists of a fragment of pale yellow, glistening, rubbery, tissue (0.3 x 0.3 x 0.3 cm). Section code: (2A) intact tissue. Specimen entirely submitted. (3) The specimen consists of multiple fragments of walters-valdez, glistening, semi-translucent tissue (0.5 x 0.2 x 0.1 cm in aggregate). Section code: (3A) tissue. Specimen entirely submitted. ([id number]) MICRO DESCRIPTION: See diagnosis. ICD-9 CODES: CPT CODES: 1: 97767 2: 04156 3: 72521 Electronically Signed Out Silvino Putnam MD [facility] [address], [place] [address] Technical component performed at [facility], [facility] [address], [place], [address]
== END 2017-02-06 16:40 | disposition home or self-care (01) | DRG 812 ==
LOC: SED 14:24 → MOC 18:17
PROVIDERS: ADMIT Internal Medicine; ATTEND Internal Medicine
PROC: 30233N1 Transfusion of Nonautologous Red Blood Cells into Peripheral Vein, Percutaneous Approach (ICD-10-PCS; 2017-02-04)
PROC: 0DB98ZX Excision of Duodenum, Via Natural or Artificial Opening Endoscopic, Diagnostic (ICD-10-PCS; principal; 2017-02-06 15:15)
PROC: 0DB68ZX Excision of Stomach, Via Natural or Artificial Opening Endoscopic, Diagnostic (ICD-10-PCS; 2017-02-06 15:15)
PROC: 0DJD8ZZ Inspection of Lower Intestinal Tract, Via Natural or Artificial Opening Endoscopic (ICD-10-PCS; 2017-02-06 15:15)
DX: D50.0 Iron deficiency anemia secondary to blood loss (chronic) (principal); J45.909 Unspecified asthma, uncomplicated; R53.83 Other fatigue; E03.9 Hypothyroidism, unspecified; N40.0 Benign prostatic hyperplasia without lower urinary tract symptoms; K31.7 Polyp of stomach and duodenum; Z79.51 Long term (current) use of inhaled steroids